=== PATIENT | female | born 1990 | race African-American/Black ===

== ENCOUNTER 2017-05-03 01:48 | Emergency (ER) | payer OTHER ==
[2017-05-03 01:49] VITALS: BP 122/69; PULSE 132; RESP 16; TEMP 100.1; O2SAT 96
--- NOTE | 2017-05-03 02:22 | PD ---
HPI Chief Complaint: ENT Complaint Time Seen by Provider: 02:08 Travel History International Travel<30 days: No Contact w/Intl Traveler<30days: No Traveled to known affect area: No History of Present Illness HPI The patient is 26 year old female who presents to the [facility] emergency department with a history of sore throat that she reports began yesterday. The patient reports that it is painful to swallow. She reports that she's had fevers and chills. She reports that she's had a fever with a MAXIMUM TEMPERATURE of 100.1. The patient reports that she's been taking Tylenol for the pain. She reports that she's been spitting out yellow to green drainage. She denies having any chest congestion or cough. She denies having any head congestion, sinus pressure, or rhinorrhea. The patient reports having nausea without vomiting. She reports that she did have one episode of diarrhea earlier today. On review of systems, she denies any posterior neck pain, chest pain, shortness of breath, abdominal pain, dysuria, urinary urgency, or neurologic symptoms. The patient reports that she does have a gland swelling and tenderness in the anterior neck. The patient reports that she's also on review of systems had urinary frequency. LMP: April 20, 2017 [facility] Past Medical History Narrative Medical The patient's past medical history is significant for none. Medical History: Denies Significant Hx Diminished Hearing: No Tetanus Vaccination: Unknown Influenza Vaccination: No ?: Not LMP: 04/20/17 Tubal Ligation: Yes Past Surgical History Narrative Surgical The patient's past surgical history is significant for a bilateral tubal ligation, 3. Section: Yes (3X) Social History Alcohol Use: No Tobacco Use: No Substance Use: No Allergies-Medications (Allergen,Severity, Reaction): Coded Allergies: No Known Allergies (Verified Allergy, Unknown, 05/03/17) Narrative Medication Tylenol when necessary Review of Systems Except as stated in HPI: all other systems reviewed are Neg General / Constitutional: Positive: Fever, Chills Eyes: No: Visual changes HENT: Positive: Sore Throat, No: Headaches, Rhinorrhea, Congestion Cardiovascular: No: Chest Pain or Discomfort Respiratory: No: Cough, Shortness of Breath Gastrointestinal: Positive: Nausea, Diarrhea, Changes in Bowel Habits, No: Vomiting, Abdominal Pain, Indigestion, Loss of Appetite Genitourinary: No: Dysuria Musculoskeletal: No: Pain Skin: No Rash Neurologic: No: Weakness, Focal Abnormalities, Change in Mentation, Slurred Speech, Sensory Disturbance Psychiatric: No: Depression Endocrine: No: Polydipsia Hematologic/Lymphatic: No: Easy Bruising Physical Exam Narrative General: The patient is a well-developed well-nourished female in no acute distress. Head and Neck exam: Head is normocephalic atraumatic. Eyes: EOMI, pupils are equal round and reactive to light. Nose: Midline septum with pink mucous membranes Mouth: Dentition unremarkable. Moist mucus membranes. Posterior oropharynx is erythematous with tonsillar hypertrophy, exudates are noted. The patient has palatal petechiae. No signs of peritonsillar abscess. Uvula midline. Airway patent. Neck: She has anterior cervical lymphadenopathy noted near her tonsils. No nuchal rigidity. No thyromegaly. Cardiovascular: Sinus tachycardia in the 120s without murmurs, gallops, or rubs. No pulse deficit to the extremities and simultaneous auscultation and palpation of her radial artery. Lungs: Clear to auscultation bilaterally. No wheezes, rhonchi, or rales. Abdomen: Soft, without tenderness to palpation in all 4 quadrants of the abdomen. No guarding, rebound, or rigidity. Normal bowel sounds are audible. No tenderness on palpation of McBurney's point. Extremities: No clubbing, cyanosis, or edema. Neurologic Exam: Grossly nonfocal. Skin Exam: No rash noted. Intact skin that is warm and dry. Data Data Last Documented VS Vital Signs Date Time Temp Pulse Resp B/P (MAP) Pulse Ox O2 Delivery O2 Flow Rate FiO2 05/03/17 02:57 113 18 103/60 (74) 99 Room Air 05/03/17 01:49 100.1 Orders Orders Complete Blood Count With Diff (05/03/17 02:22) Basic Metabolic Panel (Bmp) (05/03/17 02:22) Urinalysis - C+S If Indicated (05/03/17 02:22) Group A Rapid Strep Screen (05/03/17 02:22) Iv Access Insert/Monitor (05/03/17 02:22) Ecg Monitoring (05/03/17 02:22) Oximetry (05/03/17 02:22) Ed Urine Pregnancytest Poc (05/03/17 02:22) Ceftriaxone Inj (Rocephin Inj) (05/03/17 02:30) Dexamethasone Inj (Decadron Inj) (05/03/17 02:30) Sodium Chlor 0.9% 1000 Ml Inj (Ns 1000 M (05/03/17 02:30) Monoscreen (05/03/17 02:36) Ibuprofen (Motrin) (05/03/17 03:15) Ns (Bolus) Inj (05/03/17 03:30) Labs Laboratory Tests Test 05/03/17 02:40 White Blood Count 23.4 TH/MM3 Red Blood Count 4.71 MIL/MM3 Hemoglobin 12.0 GM/DL Hematocrit 37.2 % Mean Corpuscular Volume 79.1 FL Mean Corpuscular Hemoglobin 25.4 PG Mean Corpuscular Hemoglobin Concent 32.2 % Red Cell Distribution Width 16.3 % Platelet Count 345 TH/MM3 Mean Platelet Volume 7.7 FL Neutrophils (%) (Auto) 89.0 % Lymphocytes (%) (Auto) 4.3 % Monocytes (%) (Auto) 5.1 % Eosinophils (%) (Auto) 1.3 % Basophils (%) (Auto) 0.3 % Neutrophils # (Auto) 20.8 TH/MM3 Lymphocytes # (Auto) 1.0 TH/MM3 Monocytes # (Auto) 1.2 TH/MM3 Eosinophils # (Auto) 0.3 TH/MM3 Basophils # (Auto) 0.1 TH/MM3 CBC Comment AUTO DIFF Differential Comment AUTO DIFF CONFIRMED Urine Color YELLOW Urine Turbidity HAZY Urine pH 5.5 Urine Specific [place] 1.025 Urine Protein 30 mg/dL Urine Glucose (UA) NEG mg/dL Urine Ketones 80 mg/dL Urine Occult Blood MOD Urine Nitrite NEG Urine Bilirubin NEG Urine Urobilinogen 4.0 MG/DL Urine Leukocyte Esterase TRACE Urine RBC 15 /hpf Urine WBC 6 /hpf Urine Squamous Epithelial Cells 5 /hpf Urine Mucus MANY /lpf Microscopic Urinalysis Comment CULT NOT INDICATED Blood Urea Nitrogen 8 MG/DL Creatinine 0.74 MG/DL Random Glucose 91 MG/DL Calcium Level 8.9 MG/DL Sodium Level 136 MEQ/L Potassium Level 3.5 MEQ/L Chloride Level 102 MEQ/L Carbon Dioxide Level 26.4 MEQ/L Anion Gap 8 MEQ/L Estimat Glomerular Filtration Rate 116 ML/MIN Monoscreen NEG MDM Medical Decision Making Medical Screen Exam Complete: Yes Emergency Medical Condition: Yes Medical Record Reviewed: Yes Differential Diagnosis Strep pharyngitis, versus mono, versus other viral pharyngitis, versus peritonsillar abscess Narrative Course During the course of the patients emergency department visit, the patients history, examination, and differential diagnosis were reviewed with the patient. The patient had IV access obtained and blood work sent for analysis. The patient was placed on a laboratory monitor with oximetry and blood pressure monitoring. The patient was initially provided normal saline 1 L IV fluid bolus, Decadron 8 mg IV, Motrin 400 mg by mouth for fever, Rocephin 1 g IV. The patients laboratory studies were reviewed and remarkable for a rapid strep test was positive for the strep antigen. White count is 23.4, hemoglobin 12, platelets 345 with 89 neutrophils, lymphocytes 4.3, urinalysis shows 80 ketones , moderate occult blood, trace leukocyte esterase, RBCs 15, WBC 6, many mucus, 5 squamous epithelial cells, basic metabolic profile was within normal limits. Monospot was negative. The patient was given an additional normal saline 500 mL bolus. The patient will be discharged home with a prescription for amoxicillin. The patient is instructed to push fluids and get plenty of rest. The patient is instructed to follow-up with her primary care physician for reexamination for improvement in the next 3 days. The patient is resting comfortably and feels better, is alert and in no distress. The patients results and examination findings were discussed with the patient. The repeat examination is unremarkable and benign. The history, exam, diagnostic testing, and current condition do not suggest any significant pathology to warrant further testing, continued ED treatment, admission, or surgical evaluation at this point. The vital signs have been stable. The patient does not have uncontrollable pain, intractable vomiting, or other significant symptoms. The patient's condition is stable and appropriate for discharge. The patient will pursue further outpatient evaluation with a primary care physician or other designated or consulting physician as indicated in the discharge instructions. The patient expressed understanding and was agreeable with this plan. Diagnosis Primary Impression: Strep pharyngitis Additional Impression: Mild dehydration Referrals: Primary Care Physician 3 days Patient Instructions: Dehydration (ED), General Instructions, Strep Throat (ED) Med/Other Pt SpecificInfo: Prescription(s) given Scripts Amoxicillin (Amoxicillin) 500 Mg Cap 500 MG PO BID for Infection for 10 Days, CAP 0 Refills Prov: Jaci Love MD 05/03/17 Disposition: 01 DISCHARGE HOME Condition: Stable Jaci Love MD May 03, 2017 02:22
[2017-05-03] MEDS ORDERED: DEXAMETHASONE SOD PHOS 4 MG/ML VIAL IV PUSH ONE (02:30)
[2017-05-03] MEDS ORDERED: SODIUM CHLOR 0.9% 1000 ML INJ 1,000 ML IV ONE (02:30)
[2017-05-03] MEDS ORDERED: cefTRIAXone INJ 1,000 MG in SODIUM CHLORIDE 0.9% INJ 100 ML IV ONE (02:30)
[2017-05-03 02:56] VITALS: RESP 18; O2SAT 99
[2017-05-03 02:57] VITALS: BP 103/60; PULSE 113; RESP 18; O2SAT 99
[2017-05-03 03:00] LABS: AUTOMATED NEUTROPHIL # 20.8 TH/MM3 (1.8-7.7); BASOPHIL # 0.1 TH/MM3 (0-0.2); BASOPHIL % 0.3 % (0.0-2.0); EOSINOPHIL # 0.3 TH/MM3 (0-0.4); EOSINOPHIL % 1.3 % (0.0-4.0); HEMATOCRIT 37.2 % (35.0-46.0); LYMPH % 4.3 % (9.0-44.0); MEAN CELL VOLUME 79.1 FL (80.0-100.0); MEAN CORPUSCULAR HEMOGLOBIN 25.4 PG (27.0-34.0); MEAN CORPUSCULAR HGB CONC 32.2 % (32.0-36.0); MONO % 5.1 % (0.0-8.0); PLATELET COUNT 345 TH/MM3 (150-450); RED BLOOD COUNT 4.71 MIL/MM3 (4.00-5.30); RED CELL DISTRIBUTION WIDTH 16.3 % (11.6-17.2); WHITE BLOOD COUNT 23.4 TH/MM3 (4.0-11.0)
[2017-05-03 03:01] LABS: HEMO FLAGS AUTO DIFF
[2017-05-03 03:09] LABS: BLOOD, URINE MOD (NEG); COMMENT (UR) CULT NOT INDICATED; CULTURE IF INDICATED CULT NOT INDICATED; GLUCOSE,URINE NEG (NEG); KETONE, URINE 80 mg/dL (NEG); MUCUS URINE MANY /lpf (OCC); NITRITE,URINE NEG (NEG); PH, URINE 5.5 (5.0-8.5); SQUAMOUS EPITHELIAL CELL URINE 5 /hpf (0-5); URINE COLOR YELLOW (YELLW/STRAW)
[2017-05-03] MEDS ORDERED: IBUPROFEN 400 MG TAB PO ONE (03:15)
[2017-05-03 03:16] LABS: BICARBONATE 26.4 MEQ/L (21.0-32.0); POTASSIUM 3.5 MEQ/L (3.5-5.1)
[2017-05-03 03:23] LABS: SCAN/DIFF AUTO DIFF CONFIRMED
[2017-05-03] MEDS ORDERED: AMOX500C PO (03:27)
[2017-05-03] MEDS ORDERED: SODIUM CHLORID 0.9% 500 ML INJ 500 ML IV ONE (03:30)
[2017-05-03 03:36] VITALS: BP 106/64; PULSE 112; RESP 18; O2SAT 99
== END 2017-05-03 04:09 | disposition home or self-care (01) ==
LOC: NEPC 01:48
DX: J02.0 Streptococcal pharyngitis (principal); B95.0 Streptococcus, group A, as the cause of diseases classified elsewhere; E86.0 Dehydration
CPT/HCPCS: 80048; 81001; 84703; 85025; 86308; 87880; 96361; 96365; 96375; 99284; J0696; J1100; J7030; J7040